=== PATIENT | female | born 1960 | race Caucasian/White ===

== ENCOUNTER 2018-10-24 11:40 | Emergency (ER) | payer BC ==
--- OUTSIDE RECORDS SUMMARY | 2018-10-24 11:47 | XMS REPORT | Continuity of Care Document ---
:1960 External Reference #:[id number] Author Name Jasmina Marcus RN MS SERVICES COORDINATOR Address [address] [place] [address] Care Team Providers Name Role Phone Jasmina Marcus RN MS SERVICES COORDINATOR Care Team Information Environmental Services Assistant Unavailable Payers Date Identification Numbers Payment Provider Subscriber Policy Number: [id number] [facility] Melissa Dietrich PayID: [id number] [address] [place] [address] Advance Directives Description No Information Available Problems Date Description Provider Status Onset: 11/18/2006 Allergic rhinitis due to pollen Active Onset: 11/18/2006 Benign essential hypertension Active Family History Date Family Member(s) Observation Comments Father CAD Father Diabetes, Adult Father Carotid Artery Disease Mother Hypercholesterolemia not tolerant of meds Mother Hypertension Mother Diabetes, Adult diet controlled Mother bifemerol bipass Social History Type Date Description Comments Sex Unknown Marital Status Lives With Son And Parents And Sister Occupation Circuit Design Engineer Occupation Currently Working AT [employer] Tobacco Use Start: Unknown Never Smoked Cigarettes ETOH Use Occasionally consumes alcohol Tobacco Use Start: Unknown Patient has never smoked Smoking Status Reviewed: 10/07/18 Patient has never smoked Allergies, Adverse Reactions, Alerts Description No Known Drug Allergies Medications Medication Date Status Form Strength Qnty SIG Indications Ordering Provider Clotrimazole/Be Active Cream 1-0.05% 30gm apply L30.9 Angeline tamethasone 019 twice a Jasmina C, Dipropionate day as RN MS SERVICES COORDINATOR needed to rash till gone Cephalexin Active Capsules 500mg 21caps 1 tab L03.032 Angeline, 019 three Jasmina C, times a RN MS SERVICES COORDINATOR day for 7 days Zyrtec Allergy Active Capsules 10mg one tab T78.40xA Angeline, 017 daily Jasmina Tai RN MS SERVICES COORDINATOR J30.1 Lisinopril-Hydrochlorothiazide 02/01/2014 Active Tablets 20-12.5mg 90tabs take 1 I10 Angeline, tablet Jasmina by mouth Abida, RN MS once SERVICES COORDINATOR daily in the morning Aleve 11/17/2012 Active Capsules 220mg 30caps one tab 719. Angeline, bid as 69 Jasmina needed Abida RN MS for pain SERVICES COORDINATOR or headache . Dymista 05/06/2017 Hx Suspensi 137-50mcg/ 69gm 1 spray J30. Macadam, - on Act each 1 Joselyn 10/07/2018 pradeep Rizvi MD twice a day Zostavax 02/22/2015 Hx Solution 09139Tbh/[id number] 1units one time V04. Angeline, - Rec .65ML intramus 89 Jasmina 09/19/2015 taylor Tai RN MS injectio SERVICES COORDINATOR n Metformin HCL ER 08/03/2013 Hx Tablets 750mg 90tabs take one R73. Angeline, - ER 24HR tablets 01 10/07/2018 by mouth Abida, RN MS once SERVICES COORDINATOR daily with food Metformin HCL 05/24/2012 Hx Tablets 500mg 180tabs Take One Angeline, - Tablet Jasmina 08/03/2013 By Mouth Abida, RN MS Twice SERVICES COORDINATOR Daily With Meals Loratadine 05/19/2012 Hx Tablets 10mg 30tabs 1 po qd 995. Angeline, - 3 Jasmina 11/27/2016 Abida RN MS SERVICES COORDINATOR Nasonex 12/13/2009 Hx Suspensi 50mcg/Act Samples 2 sprays 995. Angeline, - on each 3 Jasmina 08/14/2010 nostril Abida RN MS daily SERVICES COORDINATOR Ventolin HFA 06/27/2009 Hx Aerosol 108(90Base 1units use tid 466. Angeline, - ) mcg/ac as 0 Jasmina 11/17/2012 needed C RN MS SERVICES COORDINATOR Robitussin ac 06/27/2009 Hx 100cc 1-2 tsp 466. Angeline, - qid prn 0 Jasmina 07/07/2009 cough C, RN MS SERVICES COORDINATOR Azithromycin 06/27/2009 Hx Tablets 250mg 6tabs 2 tabs 466. Angeline, - day one 0 Jasmina 07/07/2009 and 1 C, RN MS tab SERVICES COORDINATOR daily till gone Singulair 05/31/2009 Hx Tablets 10mg samples 1 po qd 786. Angeline, - prn 2 Jasmina 08/14/2010 C, RN MS SERVICES COORDINATOR Fluticasone Propionate 03/28/2009 Hx Suspensi 50mcg/Act 1units one 477. Angeline, - on spray 0 Jasmina 08/14/2010 per each Abida, RN MS nostril SERVICES COORDINATOR qd Nasonex 03/27/2009 Hx Suspensi 50mcg/Act 1units 2 sprays 477. Angeline, - on each 0 Jasmina 03/28/2009 nostril Abida, RN MS daily SERVICES COORDINATOR Flagyl 07/05/2008 Hx Tablets 500mg 14tabs 1 Bidx7 Angeline, - Days Jasmina 07/15/2008 Abida, RN MS SERVICES COORDINATOR Meloxicam 06/29/2008 Hx Tablets 7.5mg 30tabs take 1 719. Angeline, - tablet 89 Jasmina 08/14/2010 by mouth Abida, RN MS every SERVICES COORDINATOR day for pain Lisinopril/Hydrochlorothiazide 06/19/2008 Hx Tablets 20-12.5mg 90tabs Take One 401. Angeline, - Tablet 1 Jasmina 02/01/2014 By Mouth Abida, RN MS Every SERVICES COORDINATOR Day In The Morning Nasonex 11/18/2006 Hx Suspensi 50mcg/Act samples 2 sprays 477. Angeline, - on each 0 Jasmina 08/25/2007 nostril Abida, RN MS daily SERVICES COORDINATOR Flagyl 12/09/2005 Hx Tablets 500mg 14tabs 1 PO Trabout, - Bid-- No Tomas 12/16/2005 MD Jose During Medicati on Augmentin 11/12/2005 Hx Tablets 875mg 20tabs One Tab 682. Angeline, - bid Till 2 Jasmina 11/22/2005 Gone Abida RN MS SERVICES COORDINATOR Darvocet N 100 11/12/2005 Hx Tablets 100mg;650 40tabs 1-2po q 682. Angeline, - mg 4 h prn 2 Jasmina 08/25/2007 pain Abida RN MS SERVICES COORDINATOR Hyzaar 10/08/2005 Hx Tablets 50mg;12.5 30tabs 1 po qd Angeline, - mg Jasmina 06/19/2008 Abida RN MS SERVICES COORDINATOR Clarinex 08/13/2004 Hx Tablets 5mg 30tabs qd as Angeline, - directed Jasmina 08/25/2007 Abida RN MS SERVICES COORDINATOR prior authoriz ation # [id number] 317 Cozaar 08/13/2004 Hx Tablets 50mg 30tabs i po qd Angeline, - Jasmina 10/08/2005 Abida RN MS SERVICES COORDINATOR Medications Administered in Office Medication Date Status Form Strength Qnty SIG Indications Ordering Provider B-12 Injection Administered Injection Unknown 016 Immunizations CPT Code Status Date Vaccine Lot # [id number] Given 04/17/2018 Flu Vaccine NOS 20167 Given 04/26/2017 Afluria Or Fluvirin Flu Vac Intramuscular 47840 Given 04/13/2016 Influenza Vac, Quadrivalent, Split, 0.5mL Dosage, Im Use [id number] Given 06/22/2013 Fluzone Trivalent Immunization [id number] Q2038 Given 05/19/2012 Fluzone Trivalent Immunization [id number] 17054 Given 05/19/2012 Tdap (Adacel) Ages 7 And Above Only [id number] Q2038 Given 05/05/2011 Fluzone Trivalent Immunization [id number] 31365 Given 05/06/2010 Afluria Or Fluvirin Flu Vac Intramuscular [id number] 05580 Given 07/10/2009 Influenza Virus Vaccine Pandemic Formulation - [id number] 66248 Given 07/10/2009 Administration Swine Flu Vaccine [id number] 53461 Given 04/30/2009 Afluria Or Fluvirin Flu Vac Intramuscular [id number] 79298 Given 06/02/2008 Afluria Or Fluvirin Flu Vac Intramuscular [id number] 35160 Given 06/03/2007 Afluria Or Fluvirin Flu Vac Intramuscular 14948 Given 06/03/2007 Afluria Or Fluvirin Flu Vac Intramuscular [id number] 08366 Given 06/04/2006 Afluria Or Fluvirin Flu Vac Intramuscular 35735 Given 06/04/2006 Afluria Or Fluvirin Flu Vac Intramuscular [id number] 69043 Given 04/30/2005 Afluria Or Fluvirin Flu Vac Intramuscular [id number] 35511 Given 05/08/2004 Afluria Or Fluvirin Flu Vac Intramuscular 88845 Given 05/24/2003 Afluria Or Fluvirin Flu Vac Intramuscular 04222 Given 05/04/2002 Afluria Or Fluvirin Flu Vac Intramuscular 76029 Given 06/15/2000 Influenza Virus Vaccine, Whole Virus, Intramuscular Or Jet Inj. Vital Signs Date Vital Result Comment 10/07/2018 8:06am Weight 224.00 lb Heart Rate 92 /min BP Systolic 136 mmHg BP Diastolic 60 mmHg Height 66 inches 5'6" BMI (Body Mass Index) 36.2 kg/m2 05/06/2017 7:51am Body Temperature 97.8 F Weight 225.00 lb Heart Rate 88 /min BP Systolic 130 mmHg BP Diastolic 66 mmHg Height 66 inches 5'6" BMI (Body Mass Index) 36.3 kg/m2 11/27/2016 1:32pm Weight 227.50 lb Heart Rate 82 /min BP Systolic 118 mmHg BP Diastolic 62 mmHg Height 66 inches 5'6" BMI (Body Mass Index) 36.7 kg/m2 09/19/2015 1:43pm Weight 229.25 lb Heart Rate 84 /min BP Systolic 118 mmHg BP Diastolic 69 mmHg Height 66 inches 5'6" BMI (Body Mass Index) 37.0 kg/m2 02/22/2015 10:08am Weight 222.38 lb Heart Rate 83 /min BP Systolic 127 mmHg BP Diastolic 77 mmHg Height 66 inches 5'6" BMI (Body Mass Index) 35.9 kg/m2 02/01/2014 8:14am Weight 225.50 lb Heart Rate 80 /min BP Systolic 119 mmHg BP Diastolic 71 mmHg 08/03/2013 8:08am Weight 225.00 lb Heart Rate 80 /min BP Systolic 118 mmHg BP Diastolic 70 mmHg 11/17/2012 8:15am Weight 221.00 lb Heart Rate 76 /min BP Systolic 116 mmHg BP Diastolic 67 mmHg Height 65.5 inches 5'5.50" BMI (Body Mass Index) 36.2 kg/m2 05/19/2012 1:25pm Weight 214.00 lb Heart Rate 90 /min BP Systolic 142 mmHg BP Diastolic 75 mmHg 08/14/2010 8:24am Weight 207.00 lb Heart Rate 72 /min BP Systolic 110 mmHg BP Diastolic 70 mmHg Height 66.5 inches 5'6.50" With Shoes BMI (Body Mass Index) 32.9 kg/m2 06/27/2009 2:28pm Body Temperature 97.6 F Heart Rate 95 /min BP Systolic 131 mmHg BP Diastolic 76 mmHg Respiratory Rate 20 /min 05/31/2009 8:04am Weight 229.00 lb Heart Rate 90 /min BP Systolic 129 mmHg BP Diastolic 74 mmHg 03/27/2009 11:34am Body Temperature 97.1 F Weight 230.00 lb Heart Rate 73 /min BP Systolic 117 mmHg BP Diastolic 70 mmHg 06/29/2008 8:35am Weight 233.00 lb Heart Rate 76 /min BP Systolic 122 mmHg BP Diastolic 73 mmHg Respiratory Rate 20 /min Height 65.75 inches 5'5.75" BMI (Body Mass Index) 37.9 kg/m2 08/25/2007 11:46am Weight 225.00 lb Heart Rate 75 /min BP Systolic 132 mmHg BP Diastolic 73 mmHg 11/18/2006 11:17am Body Temperature 98.3 F Weight 231.00 lb Heart Rate 80 /min BP Systolic 146 mmHg BP Diastolic 84 mmHg 11/26/2005 9:41am Body Temperature 97.7 F Weight 218.00 lb Heart Rate 80 /min BP Systolic 132 mmHg BP Diastolic 80 mmHg 11/12/2005 10:31am Body Temperature 97.6 F Weight 220.00 lb Heart Rate 90 /min BP Systolic 124 mmHg BP Diastolic 80 mmHg 10/08/2005 9:33am Weight 218.00 lb Heart Rate 86 /min BP Systolic 150 mmHg BP Diastolic 86 mmHg 02/21/2005 11:31am Weight 213.00 lb Heart Rate 80 /min BP Systolic 112 mmHg BP Diastolic 70 mmHg 08/13/2004 10:32am Weight 215.00 lb Heart Rate 73 /min BP Systolic 129 mmHg BP Diastolic 80 mmHg Results Test Date Facility Test Result H/L Range Note Lipid 11/19/2016 [facility] Cholesterol 199 mg/dL 50-199 Triglycerides 134 mg/dL 30-200 HDL 56 mg/dL 35-85 1 Chol/ HDL Ratio 3.5 ratio Low 3.7-5.6 VLDL 27 mg/dL 2-29 LDL (Calc) 116 mg/dL High 20-99 2 Hemoglobin A1c 11/19/2016 [facility] Hemoglobin A1c 6.4 % High 4.1-5.9 Estimated Average Glucose Calc 137 71-140 Comprehensive Metabolic (CMP) 11/19/2016 [facility] Sodium 135 mmol/L 135- 146 3 Potassium 5.4 No visible h <SEE NOTE> mmol/L High 3.5-5.2 4 Chloride# 100 mmol/L 97-110 5 Carbon Dioxide 29 mmol/L 24-34 Glucose 120 mg/dL High 70-105 BUN 24 mg/dL 6-26 Creatinine 1.2 mg/dL 0.5-1.4 Calcium 9.7 mg/dL 8.5-10.2 Total Protein 6.7 g/dL 6.0-8.0 Albumin 4.4 g/dL 3.6-4.9 Globulin 2.3 g/dL 2.0-3.5 A/G Ratio 1.9 Ratio 1.0-2.2 Total Bilirubin 0.7 mg/dL 0.1-1.3 Alkaline Phosphatase 63 U/L 24-140 Alt 14 U/L 3-42 Ast 14 U/L 8-42 Kaylynn Egfr 58 Low >60 6 Non Kaylynn Egfr 48 Low >60 7 Anion Gap 11 mmol/L 7-16 8 Laboratory test finding 09/19/2015 [facility] Pap SEE NOTE 9 Laboratory test finding 09/12/2015 [facility] Hemoglobin A1c 6.3 % High 4.1- 5.9 Comprehensive Metabolic 09/12/2015 [facility] Sodium 136 mmol/L 134-142 (CMP) Potassium 5.6 No visible h <SEE NOTE> mmol/L High 3.5-5.2 10 Chloride 103 mmol/L 97-109 Carbon Dioxide 26 mmol/L 24-34 Glucose 112 mg/dL High 70-105 BUN 22 mg/dL 6-26 Creatinine 1.0 mg/dL 0.5-1.4 Calcium 9.5 mg/dL 8.5-10.2 Total Protein 6.4 g/dL 6.0-8.0 Albumin 4.2 g/dL 3.6-4.9 Globulin 2.2 g/dL 2.0-3.5 A/G Ratio 1.9 Ratio 1.0-2.2 Total Bilirubin 0.9 mg/dL 0.1-1.3 Alkaline Phosphatase 55 U/L 24-140 Alt 16 U/L 3-42 Ast 13 U/L 8-42 Anion Gap 13 mmol/L 6-14 Kaylynn Egfr >60 >60 11 Non Kaylynn Egfr 58 Low >60 12 Lipid 09/12/2015 [facility] Cholesterol 183 mg/dL 50-199 Triglycerides 117 mg/dL 30-200 HDL 52 mg/dL 35-85 13 Chol/ HDL Ratio 3.5 ratio Low 3.7-5.6 VLDL 23 mg/dL 2-29 LDL (Calc) 108 mg/dL High 20-99 14 Laboratory test finding 02/26/2015 [facility] Hemoglobin A1c 6.3 % High 4.1- 5.9 15 Comprehensive Metabolic 02/26/2015 [facility] Sodium 134 mmol/L 134-142 (CMP) Potassium 5.1 mmol/L 3.5-5.2 Chloride 101 mmol/L 97-109 Carbon Dioxide 25 mmol/L 24-34 Glucose 109 mg/dL High 70-105 BUN 18 mg/dL 6-26 Creatinine 1.0 mg/dL 0.5-1.4 Calcium 9.4 mg/dL 8.5-10.2 Total Protein 6.9 g/dL 6.0-8.0 Albumin 4.4 g/dL 3.6-4.9 Globulin 2.5 g/dL 2.0-3.5 A/G Ratio 1.8 Ratio 1.0-2.2 Total Bilirubin 0.7 mg/dL 0.1-1.3 Alkaline Phosphatase 62 U/L 24-140 Alt 15 U/L 3-42 Ast 14 U/L 8-42 Anion Gap 13 mmol/L 6-14 Kaylynn Egfr >60 >60 16 Non Kaylynn Egfr 57 Low >60 17 Laboratory test finding 02/26/2015 [facility] TSH 2.97 uIU/mL 0.35-4.94 CBC With Auto Diff 01/25/2014 [facility] WBC 5.9 K/uL 4.1-11.0 RBC 4.74 M/uL 4.00-5.40 Hemoglobin 13.7 gm/dL 12.0-16.0 Hematocrit 41.0 % 36.0-47.0 MCV 86.4 fL 80.0-97.0 MCH 28.9 pg 27.0-32.0 MCHC 33.4 g/dL 32.0-36.0 RDW 14.1 % 11.5-14.5 PLT Count 321 K/ul 140-400 Neutrophil 65.2 % 35.0-75.0 Lymphocyte 24.9 % 16.0-52.0 Monocyte 6.5 % 2.0-10.0 Eosinophil 2.4 % 0.0-5.0 Basophil 1.0 % 0.0-4.0 Abs Neutrophils 3.8 K/uL 2.1-8.0 Abs Lymphocytes 1.5 K/uL 0.8-5.5 Abmon 0.4 K/uL 0.1-1.0 Abs Eosinophils 0.1 K/uL 0.0-0.5 Abs Basophils 0.1 K/uL 0.0-0.3 Laboratory test finding 01/25/2014 [facility] Hemoglobin A1c 6.6 % High 4.1- 5.9 Lipid 01/25/2014 [facility] Cholesterol 198 mg/dL 50-199 Triglycerides 129 mg/dL 30-200 HDL 58 mg/dL 35-85 18 Chol/ HDL Ratio 3.4 ratio Low 3.7-5.6 VLDL 26 mg/dL 2-29 LDL (Calc) 114 mg/dL High 20-99 19 Comprehensive Metabolic (CMP) 01/25/2014 [facility] Sodium 134 mmol/L 134- 142 Potassium 4.9 mmol/L 3.5-5.2 Chloride 103 mmol/L 97-109 Carbon Dioxide 21 Extremely holly <SEE NOTE> mmol/L Low 24-34 20 Glucose 98 mg/dL 70-105 BUN 21 mg/dL 6-26 Creatinine 1.1 mg/dL 0.5-1.4 Calcium 9.4 mg/dL 8.5-10.2 Total Protein 6.7 g/dL 6.0-8.0 Albumin 4.2 g/dL 3.6-4.9 Globulin 2.5 g/dL 2.0-3.5 A/G Ratio 1.7 Ratio 1.0-2.2 Total Bilirubin 0.7 mg/dL 0.1-1.3 Alkaline Phosphatase 57 U/L 24-140 Alt 14 U/L 3-42 Ast 14 U/L 8-42 Anion Gap 15 mmol/L High 6-14 Kaylynn Egfr >60 >60 21 Non Kaylynn Egfr 54 Low >60 22 Laboratory test finding 07/28/2013 [facility] TSH 3.30 uIU/mL 0.34-5.60 23 Comprehensive Metabolic (CMP) 07/28/2013 [facility] Sodium 137 mmol/L 134- 142 Potassium 5.3 No visible h <SEE NOTE> mmol/L High 3.5-5.2 24 Chloride 103 mmol/L 97-109 Carbon Dioxide 26 mmol/L 24-34 Glucose 121 mg/dL High 70-105 BUN 18 mg/dL 6-26 Creatinine 1.2 mg/dL 0.5-1.4 Calcium 9.6 mg/dL 8.5-10.2 Total Protein 6.4 g/dL 6.0-8.0 Albumin 4.4 g/dL 3.6-4.9 Globulin 2.0 g/dL 2.0-3.5 A/G Ratio 2.2 Ratio 1.0-2.2 Total Bilirubin 0.5 mg/dL 0.1-1.3 Alkaline Phosphatase 59 U/L 24-140 Alt 15 U/L 3-42 Ast 13 U/L 8-42 Anion Gap 13 mmol/L 6-14 Kaylynn Egfr 58 Low >60 25 Non Kaylnyn Egfr 48 Low >60 26 Laboratory test finding 07/28/2013 [facility] Hemoglobin A1c 6.3 % High 4.1- 5.9 CBC With Auto Diff 07/28/2013 [facility] WBC 6.8 K/uL 4.1-11.0 RBC 4.31 M/uL 4.00-5.40 Hemoglobin 13.3 gm/dL 12.0-16.0 Hematocrit 38.3 % 36.0-47.0 MCV 88.9 fL 80.0-97.0 MCH 30.7 pg 27.0-32.0 MCHC 34.6 g/dL 32.0-36.0 RDW 12.9 % 11.5-14.5 PLT Count 314 K/ul 140-400 Neutrophil 74.1 % 35.0-75.0 Lymphocyte 16.5 % 16.0-52.0 Monocyte 6.3 % 2.0-10.0 Eosinophil 2.5 % 0.0-5.0 Basophil 0.6 % 0.0-4.0 Abs Neutrophils 5.0 K/uL 2.1-8.0 Abs Lymphocytes 1.1 K/uL 0.8-5.5 Abmon 0.4 K/uL 0.1-1.0 Abs Eosinophils 0.2 K/uL 0.0-0.5 Abs Basophils 0.0 K/uL 0.0-0.3 Laboratory test 11/17/2012 [facility] Pap SEE NOTE 27 finding GC/Chlamydia By Dna 11/17/2012 [facility] Chlamydia by Dna NEGATIVE Negative Probe Probe GC by Dna Probe NEGATIVE Negative Comprehensive Metabolic (CMP) 09/06/2012 [facility] Sodium 135 mmol/L 134- 142 28 Potassium 5.5 No visible h <SEE NOTE> mmol/L High 3.5-5.2 29 Chloride 102 mmol/L 97-109 Carbon Dioxide 29 mmol/L 24-34 Glucose 98 mg/dL 70-105 BUN 25 mg/dL 6-26 Creatinine 1.1 mg/dL 0.5-1.4 Calcium 9.4 mg/dL 8.5-10.2 Total Protein 6.6 g/dL 6.0-8.0 Albumin 4.3 g/dL 3.6-4.9 Globulin 2.3 g/dL 2.0-3.5 A/G Ratio 1.9 Ratio 1.0-2.2 Total Bilirubin 0.7 mg/dL 0.1-1.3 Alkaline Phosphatase 59 U/L 24-140 Alt 13 U/L 3-42 Ast 12 U/L 8-42 Anion Gap 10 mmol/L 6-14 Kaylynn Egfr >60 >60 30 Non Kaylynn Egfr 54 Low >60 31 CBC With Auto Diff 09/06/2012 [facility] WBC 6.6 K/uL 4.1-11.0 RBC 4.36 M/uL 4.00-5.40 Hemoglobin 13.3 gm/dL 12.0-16.0 Hematocrit 40.7 % 36.0-47.0 MCV 93.1 fL 80.0-97.0 MCH 30.6 pg 27.0-32.0 MCHC 32.8 g/dL 32.0-36.0 RDW 13.0 % 11.5-14.5 PLT Count 305 K/ul 140-400 Neutrophil 68.4 % 35.0-75.0 Lymphocyte 20.7 % 16.0-52.0 Monocyte 6.9 % 2.0-10.0 Eosinophil 3.1 % 0.0-5.0 Basophil 0.9 % 0.0-4.0 Abs Neutrophils 4.5 K/uL 2.1-8.0 Abs Lymphocytes 1.4 K/uL 0.8-5.5 Abs Monocytes 0.5 K/uL 0.1-1.0 Abs Eosinophils 0.2 K/uL 0.0-0.5 Abs Basophils 0.1 K/uL 0.0-0.3 Lipid 09/06/2012 [facility] Cholesterol 193 mg/dL 50-199 Triglycerides 100 mg/dL 30-200 HDL 61 mg/dL 35-85 32 Chol/ HDL Ratio 3.2 ratio Low 3.7-5.6 VLDL 20 mg/dL 2-29 LDL (Calc) 112 mg/dL 20-129 33 Non HDL Cholesterol 132 mg/dL High 20-129 34 Laboratory test finding 09/06/2012 [facility] Hemoglobin A1c 6.1 % High 4.1- 5.9 TSH 2.33 uIU/mL 0.34-5.60 Comprehensive Metabolic (CMP) 05/19/2012 [facility] Sodium 138 mmol/L 134- 142 35 Potassium 5.1 mmol/L 3.5-5.2 Chloride 100 mmol/L 97-109 Carbon Dioxide 28 mmol/L 24-34 Glucose 99 mg/dL 70-105 BUN 20 mg/dL 6-26 Creatinine 1.1 mg/dL 0.5-1.4 Calcium 9.9 mg/dL 8.5-10.2 Total Protein 7.1 g/dL 6.0-8.0 Albumin 4.7 g/dL 3.6-4.9 Globulin 2.4 g/dL 2.0-3.5 A/G Ratio 2.0 Ratio 1.0-2.2 Total Bilirubin 0.7 mg/dL 0.1-1.3 Alkaline Phosphatase 59 U/L 24-140 Alt 14 U/L 3-42 Ast 14 U/L 8-42 Anion Gap 15 mmol/L High 6-14 Kaylynn Egfr >60 >60 36 Non Kaylynn Egfr 54 Low >60 37 [facility] 1[facility] uIU/mL 0.34-5.60 Lipid 05/19/2012 [facility] Cholesterol 218 mg/dL High 50-199 Triglycerides 89 mg/dL 30-200 HDL 60 mg/dL 35-85 38 Chol/ HDL Ratio 3.6 ratio Low 3.7-5.6 VLDL 18 mg/dL 2-29 LDL (Calc) 140 mg/dL High 20-129 39 [facility] test [facility]/19[facility]2012 [facility] 6.4 % High 4.1-5.9 finding Laboratory test 08/14/2010 [facility] (Do not Use) TSH 1.54 0.34-5.60 40 finding [facility] uIU/ml [place], [place] [id number] [phone] CMP 08/14/2010 [facility] (Do not Use) Sodium 141 135-144 [facility] mmol/[place] [address] [phone] Potassium 4.5 mmol/L 3.6-5.2 Chloride 105 mmol/L 97-110 Carbon Dioxide 26 mmol/L 23-32 Glucose 93 mg/dL 70-105 BUN 16 mg/dL 6-22 Creatinine 1.1 mg/dL 0.5-1.3 BUN/CR 15 Ratio Calcium 9.7 mg/dL 8.6-10.2 Total Protein 6.8 g/dL 5.8-7.8 Albumin 4.2 g/dL 3.5-4.8 Globulin 2.6 g/dL 2.0-3.5 A/G Ratio 1.6 Ratio 1.0-2.2 Total Bilirubin 1.2 mg/dL 0.3-1.2 Alkaline Phosphatase 56 U/L 24-140 Alt 17 U/L 5-45 Ast 17 U/L 12-40 Anion Gap 15 mmol/L 8-16 GFR Calculation 56 mL/min Low 60-175 41 GFR For > 60 mL/min 60-175 42 CBC With Auto Diff 08/14/2010 [facility] (Do not Use) WBC 6.4 K/ul 4.0- 10.9 [facility] [place] [address] [phone] RBC 4.56 M/ul 4.20-5.40 Hemoglobin 13.9 GM/dl 12.5-16.0 Hematocrit 40.6 % 36.0-47.0 MCV 89.0 FL 80.0-97.0 MCH 30.5 pg 27.0-31.0 MCHC 34.3 g/dL 32.0-36.0 RDW 14.8 % High 11.5-14.5 Platelet Count 334 K/ul 140-440 Neutrophils 73.0 % High 50-70 Lymphocytes 20.1 % 20-44 Monocytes 4.7 % 2-9 Eosinophil 1.8 % 0-4 Basophil 0.4 % 0-2 Absolute Neutrophils 4.7 K/ul 2.05-7.63 Absolute Lymphocytes 1.3 K/ul 0.8-4.8 Absolute Monocytes 0.3 K/ul 0.1-1.0 Absolute Eosinophils 0.1 K/ul 0.1-0.5 Absolute Basophils 0.0 K/ul 0.0-0.3 Hematology Comment (Comm2) N/A Lipid Panel 08/14/2010 [facility] (Do not Use) Cholesterol 199 mg/dL 50 -199 [facility] [place], [place] [id number] [phone] Triglycerides 79 mg/dL 10-150 HDL 72 mg/dL 35-85 43 Chol/HDL Ratio 2.8 Ratio Low 3.7-5.6 44 VLDL 16 mg/dL 2-29 LDL (Calc) 111 mg/dL 20-129 45 Laboratory test 08/14/2010 [facility] (Do not Use) [facility] Pap - (SEE NOTE) 46, 47 finding [facility] [place] [address] [phone] CBC With Auto 06/15/2009 [facility] (Do not Use) WBC 5.9 K/ul 4.0-1 48 Diff [facility] [address] [place] [address] [phone] RBC 4.30 M/ul 4.20-5.40 Hemoglobin 13.1 GM/dl 12.5-16.0 Hematocrit 39.2 % 36.0-47.0 MCV 91.0 FL 80.0-97.0 MCH 30.4 pg 27.0-31.0 MCHC 33.4 g/dL 32.0-36.0 RDW 12.8 % 11.5-14.5 Platelet Count 374 K/ul 140-440 Neutrophils 64.7 % 50-70 Lymphocytes 26.8 % 20-44 Monocytes 6.1 % 2-9 Eosinophil 2.0 % 0-4 Basophil 0.4 % 0-2 Absolute Neutrophils 3.8 K/ul 2.05-7.63 Absolute Lymphocytes 1.6 K/ul 0.8-4.8 Absolute Monocytes 0.4 K/ul 0.1-1.0 Absolute Eosinophils 0.1 K/ul 0.1-0.5 Absolute Basophils 0.0 K/ul 0.0-0.3 Hematology Comment (Comm2) N/A Laboratory test 06/15/2009 [facility] (Do not Use) Vitamin D, 25 26 ng/mL Low 31-100 finding [facility] [place] [address] [phone] CMP 06/15/2009 [facility] (Do not Use) Sodium 135 mmol/L 135-144 [facility] [place] [address] [phone] Potassium 4.6 mmol/L 3.6-5.2 Chloride 103 mmol/L 97-110 Carbon Dioxide 23 mmol/L 23-32 Glucose 110 mg/dL High 70-105 BUN 13 mg/dL 6-22 Creatinine 1.0 mg/dL 0.5-1.3 BUN/CR 13 Ratio 12.0-20.0 Calcium 9.6 mg/dL 8.6-10.2 Total Protein 6.3 g/dL 5.8-7.8 Albumin 4.1 g/dL 3.5-4.8 Globulin 2.2 g/dL 2.0-3.5 A/G Ratio 1.9 Ratio 1.0-2.2 Total Bilirubin 0.9 mg/dL 0.3-1.2 Alkaline Phosphatase 58 U/L 24-140 Alt 18 U/L 5-45 Ast 18 U/L 12-40 Anion Gap 14 mmol/L 8-16 GFR Calculation > 60 mL/min 60-175 49 GFR For > 60 mL/min 60-175 50 Laboratory test 06/15/2009 [facility] (Do not Use) Rheumatoid 102.4 High 0.0-20.0 finding [facility] Factor -Quant. IU/mL [place], [place] [id number] [phone] Lipid Panel 06/15/2009 [facility] (Do not Use) Cholesterol 183 mg/dL 50 -199 [facility] [place], [place] [id number] [phone] Triglycerides 89 mg/dL 10-150 HDL 49 mg/dL 35-85 51 Chol/HDL Ratio 3.7 Ratio 3.7-5.6 52 VLDL 18 mg/dL 2-29 LDL (Calc) 116 mg/dL 20-129 53 Laboratory test 06/15/2009 [facility] (Do not Use) TSH 1.58 uIU/ml 0.34 -5.60 finding [facility] [place] [address] [phone] Lipid Panel 06/29/2008 [facility] (Do not Use) Cholesterol 198 mg/dL 50 -199 54 [facility] [place] [address] [phone] Triglycerides 70 mg/dL 10-150 HDL 56 mg/dL 35-85 55 Chol/HDL Ratio 3.5 Ratio 56 VLDL 14 mg/dL LDL (Calc) 128 mg/dL 20-129 57 Basic (BMP) 06/29/2008 [facility] (Do not Use) Sodium 139 mmol/L 135- 144 [facility] [place] [address] [phone] Potassium 5.0 mmol/L 3.6-5.2 Chloride 105 mmol/L 97-110 Carbon Dioxide 26 mmol/L 23-33 Glucose 112 mg/dL High 70-105 BUN 16 mg/dL 6-22 Creatinine 1.1 mg/dL 0.5-1.3 BUN/CR 15 Ratio 12.0-20.0 Anion Gap 13 mmol/L 8-16 Calcium 9.8 mg/dL 8.6-10.2 GFR Calculation 56 mL/min 58 GFR For > 60 mL/min 59 Laboratory test 06/29/2008 [facility] (Do not Use) TSH 1.89 uIU/ml 0.34 -5.60 finding [facility] [place] [address] [phone] CBC With Auto Diff 06/29/2008 [facility] (Do not Use) WBC 6.4 K/ul 4.0- 10.9 [facility] [place] [address] [phone] RBC 4.73 M/ul 4.20-5.40 Hemoglobin 14.4 GM/dl 12.5-16.0 Hematocrit 42.0 % 36.0-47.0 MCV 88.8 FL 80.0-97.0 MCH 30.4 pg 27.0-31.0 MCHC 34.3 g/dL 32.0-36.0 RDW 12.9 % 11.5-14.5 Platelet Count 337 K/ul 140-440 Neutrophils 67.9 % 50-70 Lymphocytes 22.7 % 20-44 Monocytes 5.7 % 2-9 Eosinophil 3.5 % 0-4 Basophil 0.2 % 0-2 Absolute Neutrophils 4.4 K/ul 2.05-7.63 Absolute Lymphocytes 1.5 K/ul 0.8-4.8 Absolute Monocytes 0.4 K/ul 0.1-1.0 Absolute Eosinophils 0.2 K/ul 0.1-0.5 Absolute Basophils 0.0 K/ul 0.0-0.3 Hematology Comment (Comm2) N/A Laboratory test 06/29/2008 [facility] (Do not Use) Vitamin D, 25 29 ng/mL Low 31-100 finding [facility] [facility] [place] [place] [id number] [phone] Rheumatoid Factor -Quant. 105.0 IU/mL High 0.0-20.0 Claire Screen Neg Esr 5 MM/HR 0-20 Laboratory test 06/29/2008 [employer] (Do not Use) Surepath Pap - (SEE NOTE) 60 finding [facility] [place] [address] [phone] Laboratory test 11/26/2005 [facility] (Do not Use) LH - LA 41.6 finding [place] [phone] Prolactin-LA 2207 FSH - LA 28.9 CBC 10/09/2005 [facility] (Do not Use) WBC 6.1 K/ul 4.0-10.9 61 [facility] [place] [address] [phone] RBC 4.54 M/ul 4.20-5.40 Hemoglobin 14.1 GM/dl 12.5-16.0 Hematocrit 41.7 % 36.0-47.0 MCV 91.9 FL 80.0-97.0 MCH 31.0 pg 27.0-31.0 MCHC 33.7 g/dL 32.0-36.0 RDW 11.6 % 11.5-14.5 Platelet Count 331 K/ul 140-440 Neutrophils 66.5 % 50-70 Lymphocytes 24.2 % 20-44 Monocytes 5.0 % 2-9 Eosinophil 3.4 % 0-4 Basophil 0.9 % 0-2 Absolute Neutrophils 4.0 K/ul 2.05-7.63 Absolute Lymphocytes 1.5 K/ul 0.8-4.8 Absolute Monocytes 0.3 K/ul 0.1-1.0 Absolute Eosinophils 0.2 K/ul 0.1-0.5 Absolute Basophils 0.1 K/ul 0.1-0.3 Basic (BMP) 10/09/2005 [facility] (Do not Use) Sodium 138 mmol/L 135- 144 [facility] [place] [place] [address] [phone] Potassium 5.3 mmol/L High 3.6-5.2 Chloride 104 mmol/L 97-110 Carbon Dioxide 29 mmol/L 23-33 Glucose 104 mg/dL 70-105 BUN 18 mg/dL 6-22 Creatinine 1.2 mg/dL 0.5-1.3 BUN/CR 15 Ratio 12.0-20.0 Anion Gap 10 mmol/L 8-16 Calcium 9.5 mg/dL 8.6-10.2 62 GFR White Male 69 GFR White Female 51 GFR Black Male 83 GFR Black Female 62 GFR Guidelines 0 63 Laboratory test 10/09/2005 [facility] (Do not Use) TSH 1.46 uIU/ml 0.50 -6.00 finding [facility] [place] [place] [address] [phone] Lipid Panel 10/09/2005 [facility] (Do not Use) Cholesterol 185 mg/dL 50 -199 [facility] [place] [address] [phone] Triglycerides 87 mg/dL 10-150 HDL 59 mg/dL 35-85 Chol/HDL Ratio 3.1 Ratio VLDL 17 mg/dL LDL (Calc) 109 mg/dL 20-129 CBC 02/29/2004 [facility] (Do not Use) WBC 7.6 K/ul 4.1-10.9 [facility] [place] [address] [phone] RBC 4.47 M/ul 4.20-6.30 Hemoglobin 13.6 GM/dl 12.5-15.0 Hematocrit 40.0 % 37.0-51.0 MCV 89.6 FL 80.0-97.0 MCH 30.5 pg 26.0-32.0 MCHC 34.0 g/dL 31.0-36.0 RDW 12.5 % 11.5-14.5 Platelet Count 301 K/ul 140-440 Neutrophils 76.1 % High 50-70 Lymphocytes 16.8 % Low 20-44 Monocytes 5.7 % 2-9 Eosinophil 0.8 % 0-4 Basophil 0.6 % 0-2 Absolute Neutrophils 5.8 K/ul 2.05-7.63 Absolute Lymphocytes 1.3 K/ul 0.8-4.8 Absolute Monocytes 0.4 K/ul 0.1-1.0 Absolute Eosinophils 0.1 K/ul 0.1-0.5 Absolute Basophils 0.0 K/ul Low 0.1-0.3 Laboratory test 02/29/2004 [facility] (Do not Use) TSH 1.88 uIU/ml 0.50 -6.00 finding [facility] [place] [place] [address] [phone] Basic (BMP) 02/29/2004 [facility] (Do not Use) Sodium 138 mmol/L 135- 145 [facility] [place] [address] [phone] Potassium 4.6 mmol/L 3.4-5.3 Chloride 106 mmol/L 98-111 Carbon Dioxide 25 mmol/L 22-33 Glucose 102 mg/dL 70-105 BUN 14 mg/dL 6-26 Creatinine 1.2 mg/dL 0.5-1.5 BUN/CR 12 Ratio 12.0-20.0 Anion Gap 12 mmol/L 10-20 Calcium 9.0 mg/dL 8.6-10.3 Iron Profile 02/29/2004 [facility] (Do not Use) Iron, Total 88 g/dL 50-170 (Iron,Tibc,%Sat) [place] [address] [phone] Total Iron Binding Capacity 365 g/dL 261-478 % Iron Saturation 24.1 % 13.0-45.0 Laboratory test 02/29/2004 [facility] (Do not Use) Cholesterol 171 mg/dL 50-199 [place] [address] [phone] CBC 01/18/2003 [facility] (Do not Use) WBC 5.4 K/ul 4.1-10.9 [place] [address] [phone] RBC 4.75 M/ul 4.2-6.3 Hemoglobin 14.0 GM/dl 12.0-16.0 Hematocrit 42.8 % 37.0-51.0 MCV 90.0 FL 80-97 MCH 29.4 pg 26.0-32.0 MCHC 32.7 g/dL 31.0-36.0 RDW 12.2 % 11.5-14.5 Platelet Count 379 K/ul 140-440 Neutrophils 65.7 % 50-70 Lymphocytes 22.8 % 20-44 Monocytes 7.0 % 2-9 Eosinophil 3.4 % 0-4 Basophil 1.1 % 0-2 Absolute Neutrophils 3.5 K/ul 2.05-7.63 Absolute Lymphocytes 1.2 K/ul 0.8-4.8 Absolute Monocytes 0.4 K/ul 0.1-1.0 Absolute Eosinophils 0.2 K/ul 0.1-0.5 Absolute Basophils 0.1 K/ul 0.1-0.3 Laboratory test 01/18/2003 [facility] (Do not Use) Hemoglobin A1c 6.0 % 4.1-6.5 finding [facility] [place] [address] [phone] TSH 4.39 uIU/ml 0.50-6.00 Basic (BMP) 01/18/2003 [facility] (Do not Use) Sodium 139 mmol/L 135- 145 [facility] [place] [address] [phone] Potassium 4.5 mmol/L 3.4-5.3 Chloride 106 mmol/L 98-111 Carbon Dioxide 24 mmol/L 22-33 Glucose 109 mg/dL High 70-105 BUN 17 mg/dL 6-26 Creatinine 1.3 mg/dL 0.5-1.5 BUN/CR 13 Ratio 12.0-20.0 Anion Gap 14 mmol/L 10-20 Calcium 9.1 mg/dL 8.6-10.3 CBC 10/22/2001 [facility] (Do not Use) WBC 7.6 K/ul 4.1-10.9 [facility] [place] [address] [phone] RBC 4.71 M/ul 4.2-6.3 Hemoglobin 14.3 GM/dl 12.0-16.0 Hematocrit 41.6 % 37.0-51.0 MCV 88.3 FL 80-97 MCH 30.3 pg 26.0-32.0 MCHC 34.3 g/dL 31.0-36.0 RDW 11.8 % 11.5-14.5 Platelet Count 396 K/ul 140-440 Neutrophils 70.8 % High 50-70 Lymphocytes 21.2 % 20-44 Monocytes 5.7 % 2-9 Eosinophil 1.5 % 0-4 Basophil 0.8 % 0-2 Absolute Neutrophils 5.4 K/ul 2.05-7.63 Absolute Lymphocytes 1.6 K/ul 0.8-4.8 Absolute Monocytes 0.4 K/ul 0.1-1.0 Absolute Eosinophils 0.1 K/ul 0.1-0.5 Absolute Basophils 0.1 K/ul 0.1-0.3 Laboratory test 10/22/2001 [facility] (Do not Use) TSH 1.63 uIU/ml 0.47 -6.90 [place] [address] [phone] Free T4 1.3 ng/ml 0.8-2.0 Hemoglobin A1c 6.0 % 4.1-6.5 Laboratory test 10/22/2001 [facility] (Do not Use) Cholesterol 181 mg/dL 50-199 [place] [address] [phone] HDL Cholesterol 53 mg/dL 29-86 Basic (BMP) 10/22/2001 [facility] (Do not Use) Sodium 139 mmol/L 137- 145 [place] [address] [phone] Potassium 4.5 mmol/L 3.6-5.0 Chloride 103 mmol/L 98-107 Carbon Dioxide 25 mmol/L 22-30 Glucose 136 mg/dL High 65-105 BUN 15 mg/dL 7-18 Creatinine, Serum 1.3 mg/dL High 0.7-1.2 BUN/CR Ratio 11.9 Ratio Low 12-20 Anion Gap 16 mmol/L 10-20 Calcium 9.6 mg/dL 8.7-10.5 1 Per NCEP ATP III Guidelines: Results lower than 40 mg/dL are suggestive of increased risk for coronary artery disease. Results > or=to 60 mg/dL are considered a negative risk factor. 2 Per NCEP ATP III Guidelines: Normal Population <130 Patients with medical conditions: CHD/DM Optimal: <100 Borderline high: 130-159 High: 160-189 Very high: >189 3 Updated reference range on new analyzer 4 5.4 No visible hemolysis. 5 Updated reference range on new analyzer 6 Concerning GFR Guidelines for Americans: Normal function or mild renal disease, if clinically at risk: >/=60 mL/min Moderately decreased: 30-59 Severely decreased: 15-29 Renal failure: <15 7 Concerning GFR Guidelines: Normal function or mild renal disease, if clinically at risk: >/=60 mL/min Moderately decreased: 30-59 Severely decreased: 15-29 Renal failure: <15 Glomerular Filtration Rate (GFR) is estimated based on the MDRD equation, which assumes a steady state for creatinine as recommended by the National Kidney Disease Education Program in conjunction with the National Institutes of Health and the National Kidney Foundation. Clinical conditions in which it may be necessary to measure GFR by using clearance methods include extremes of age and body size, severe malnutrition or obesity, diseases of skeletal muscle, paraplegia or quadriplegia, vegetarian diet, rapidly changing kidney function, and calculation of the dose of potentially toxic drugs that are excreted by the kidneys. 8 Updated reference range on new analyzer 9 LABORATORY [employer] [facility]. [address] [place] [address] GYNECOLOGIC CYTOLOGY REPORT Accession Number: [id number] Source of Specimen(s): A: SurePath Vaginal / Cervical Pap Smear - One Vial Clinical Diagnosis and History: Date of Last Menstrual Period: 10 yrs Other Clinical Conditions: Last Smear Date: One yrs Normal Specimen Adequacy Satisfactory for evaluation Scant/no endocervical component General Categorization Negative for intraepithelial lesion or malignancy Interpretation NEGATIVE FOR INTRAEPITHELIAL LESION OR MALIGNANCY Reported: 09/21/2015 Electronically Signed Out By Daya AMANDA(ASCP) [facility]CKevin javier Unless otherwise specified, testing performed by [facility] [place] [address] [place] [address] 10 5.6 No visible hemolysis. 11 Concerning GFR Guidelines for Americans: Normal function or mild renal disease, if clinically at risk: >/=60 mL/min Moderately decreased: 30-59 Severely decreased: 15-29 Renal failure: <15 12 Concerning GFR Guidelines: Normal function or mild renal disease, if clinically at risk: >/=60 mL/min Moderately decreased: 30-59 Severely decreased: 15-29 Renal failure: <15 Glomerular Filtration Rate (GFR) is estimated based on the MDRD equation, which assumes a steady state for creatinine as recommended by the National Kidney Disease Education Program in conjunction with the National Institutes of Health and the National Kidney Foundation. Clinical conditions in which it may be necessary to measure GFR by using clearance methods include extremes of age and body size, severe malnutrition or obesity, diseases of skeletal muscle, paraplegia or quadriplegia, vegetarian diet, rapidly changing kidney function, and calculation of the dose of potentially toxic drugs that are excreted by the kidneys. 13 Per NCEP ATP III Guidelines: Results lower than 40 mg/dL are suggestive of increased risk for coronary artery disease. Results > or=to 60 mg/dL are considered a negative risk factor. 14 Per NCEP ATP III Guidelines: Normal Population <130 Patients with medical conditions: CHD/DM Optimal: <100 Borderline high: 130-159 High: 160-189 Very high: >189 15 This sample is drawn by:[facility]ANCE. 16 Concerning GFR Guidelines for Americans: Normal function or mild renal disease, if clinically at risk: >/=60 mL/min Moderately decreased: 30-59 Severely decreased: 15-29 Renal failure: <15 17 Concerning GFR Guidelines: Normal function or mild renal disease, if clinically at risk: >/=60 mL/min Moderately decreased: 30-59 Severely decreased: 15-29 Renal failure: <15 Glomerular Filtration Rate (GFR) is estimated based on the MDRD equation, which assumes a steady state for creatinine as recommended by the National Kidney Disease Education Program in conjunction with the National Institutes of Health and the National Kidney Foundation. Clinical conditions in which it may be necessary to measure GFR by using clearance methods include extremes of age and body size, severe malnutrition or obesity, diseases of skeletal muscle, paraplegia or quadriplegia, vegetarian diet, rapidly changing kidney function, and calculation of the dose of potentially toxic drugs that are excreted by the kidneys. 18 Per NCEP ATP III Guidelines: Results lower than 40 mg/dL are suggestive of increased risk for coronary artery disease. Results > or=to 60 mg/dL are considered a negative risk factor. 19 Per NCEP ATP III Guidelines: Normal Population <130 Patients with medical conditions: CHD/DM Optimal: <100 Borderline high: 130-159 High: 160-189 Very high: >189 20 21 Extremely short draw 21 Concerning GFR Guidelines for Americans: Normal function or mild renal disease, if clinically at risk: >/=60 mL/min Moderately decreased: 30-59 Severely decreased: 15-29 Renal failure: <15 22 Concerning GFR Guidelines: Normal function or mild renal disease, if clinically at risk: >/=60 mL/min Moderately decreased: 30-59 Severely decreased: 15-29 Renal failure: <15 Glomerular Filtration Rate (GFR) is estimated based on the MDRD equation, which assumes a steady state for creatinine as recommended by the National Kidney Disease Education Program in conjunction with the National Institutes of Health and the National Kidney Foundation. Clinical conditions in which it may be necessary to measure GFR by using clearance methods include extremes of age and body size, severe malnutrition or obesity, diseases of skeletal muscle, paraplegia or quadriplegia, vegetarian diet, rapidly changing kidney function, and calculation of the dose of potentially toxic drugs that are excreted by the kidneys. 23 This sample is drawn by:MM 24 5.3 No visible hemolysis. Testing performed on an aliquot tube. 25 Concerning GFR Guidelines for Americans: Normal function or mild renal disease, if clinically at risk: >/=60 mL/min Moderately decreased: 30-59 Severely decreased: 15-29 Renal failure: <15 26 Concerning GFR Guidelines: Normal function or mild renal disease, if clinically at risk: >/=60 mL/min Moderately decreased: 30-59 Severely decreased: 15-29 Renal failure: <15 Glomerular Filtration Rate (GFR) is estimated based on the MDRD equation, which assumes a steady state for creatinine as recommended by the National Kidney Disease Education Program in conjunction with the National Institutes of Health and the National Kidney Foundation. Clinical conditions in which it may be necessary to measure GFR by using clearance methods include extremes of age and body size, severe malnutrition or obesity, diseases of skeletal muscle, paraplegia or quadriplegia, vegetarian diet, rapidly changing kidney function, and calculation of the dose of potentially toxic drugs that are excreted by the kidneys. 27 [employer]. Formerly [facility], 1928–[address] [place] [address] GYNECOLOGIC CYTOLOGY REPORT Accession Number: [id number] Source of Specimen(s): A: [facility] Vaginal / Cervical Pap Smear - One Vial Clinical Diagnosis and History: Date of Last Menstrual Period: years Menstrual History: Post-menopausal Other Clinical Conditions: Last Pap Smear: 2011 normal Specimen Adequacy Satisfactory for evaluation Scant/no endocervical component General Categorization Negative for intraepithelial lesion or malignancy Interpretation NEGATIVE FOR INTRAEPITHELIAL LESION OR MALIGNANCY Acute inflammatory cells Reported: 11/22/2012 Electronically Signed Out By Kavya AMANDA(ASCP) [facility] dol Unless otherwise specified, testing performed by [employer] [place] [address] [place] [address] 28 This sample is drawn by:CT 29 5.5 No visible hemolysis. 30 Concerning GFR Guidelines for Americans: Normal function or mild renal disease, if clinically at risk: >/=60 mL/min Moderately decreased: 30-59 Severely decreased: 15-29 Renal failure: <15 31 Concerning GFR Guidelines: Normal function or mild renal disease, if clinically at risk: >/=60 mL/min Moderately decreased: 30-59 Severely decreased: 15-29 Renal failure: <15 Glomerular Filtration Rate (GFR) is estimated based on the MDRD equation, which assumes a steady state for creatinine as recommended by the National Kidney Disease Education Program in conjunction with the National Institutes of Health and the National Kidney Foundation. Clinical conditions in which it may be necessary to measure GFR by using clearance methods include extremes of age and body size, severe malnutrition or obesity, diseases of skeletal muscle, paraplegia or quadriplegia, vegetarian diet, rapidly changing kidney function, and calculation of the dose of potentially toxic drugs that are excreted by the kidneys. 32 Per NCEP ATP III Guidelines: Results lower than 40 mg/dL are suggestive of increased risk for coronary artery disease. Results > or=to 60 mg/dL are considered a negative risk factor. 33 Per NCEP ATP III Guidelines: Optimal: <100 Near optimal: 100-129 Borderline high: 130-159 High: 160-189 Very high: >189 34 Desirable: <130 Borderline High: 130-159 High: 160-189 Very high: 190 or greater 35 This sample is drawn by:EDER 36 Concerning GFR Guidelines for Americans: Normal function or mild renal disease, if clinically at risk: >/=60 mL/min Moderately decreased: 30-59 Severely decreased: 15-29 Renal failure: <15 37 Concerning GFR Guidelines: Normal function or mild renal disease, if clinically at risk: >/=60 mL/min Moderately decreased: 30-59 Severely decreased: 15-29 Renal failure: <15 Glomerular Filtration Rate (GFR) is estimated based on the MDRD equation, which assumes a steady state for creatinine as recommended by the National Kidney Disease Education Program in conjunction with the National Institutes of Health and the National Kidney Foundation. Clinical conditions in which it may be necessary to measure GFR by using clearance methods include extremes of age and body size, severe malnutrition or obesity, diseases of skeletal muscle, paraplegia or quadriplegia, vegetarian diet, rapidly changing kidney function, and calculation of the dose of potentially toxic drugs that are excreted by the kidneys. 38 Per NCEP ATP III Guidelines: Results lower than 40 mg/dL are suggestive of increased risk for coronary artery disease. Results > or=to 60 mg/dL are considered a negative risk factor. 39 Per NCEP ATP III Guidelines: Optimal: <100 Near optimal: 100-129 Borderline high: 130-159 High: 160-189 Very high: >189 40 FASTING This sample is drawn by:EDER 41 Concerning GFR GUIDELINES: Normal Function or Mild Renal Disease, if clinically at risk: >/=60mL/min Moderately decreased: 30-59 Severely decreased: 15-29 Renal Failure: <15 Glomerular Filtration Rate (GFR) is estimated based on the MDRD equation, which assumes a steady state for creatinine as recommended by the National Kidney Disease Education Program in conjunction with the National Institutes of Health and the National Kidney Foundation. Clinical conditions in which it may be necessary to measure GFR by using clearance methods include extremes of age and body size, severe malnutrition or obesity, diseases of skeletal muscle, paraplegia or quadriplegia, vegetarian diet, rapidly changing kidney function, and calculation of the dose of potentially toxic drugs that are excreted by the kidneys. 42 Concerning GFR GUIDELINES: Normal Function or Mild Renal Disease, if clinically at risk: >/=60mL/min Moderately decreased: 30-59 Severely decreased: 15-29 Renal Failure: <15 43 PER NCEP ATP III GUIDELINES: RESULTS LOWER THAN 40 MG/DL ARE SUGGESTIVE OF INCREASED RISK FOR CORONARY ARTERY DISEASE. RESULTS > OR=TO 60 MG/DL ARE CONSIDERED A NEGATIVE RISK FACTOR. 44 INTERPRETATION OF CHOL-HDL RATIO CHD RISK FEMALE MALE VERY HIGH >8.3 >14.3 HIGH 5.6 - 8.3 6.7 - 14.3 AVERAGE 3.7 - 5.6 4.0 - 6.7 BELOW AVERAGE 2.5 - 3.7 2.7 - 4.0 PROTECTED <2.5 <2.7 45 PER NCEP ATP III GUIDELINES: OPTIMAL: <100 NEAR OPTIMAL: 100 - 129 BORDERLINE HIGH: 130 - 159 HIGH: 160 - 189 VERY HIGH: >189 46 This sample is drawn by:EDER 47 [facility]. [address] [place] [address] GYNECOLOGIC CYTOLOGY REPORT Accession Number: [id number] Source of Specimen(s): A: SurePath Endocervical Pap Smear - One Vial Clinical Diagnosis and History: Date of Last Menstrual Period: 2 yrs ago Other Clinical Conditions: Last Pap Smear: 2008 normal Specimen Adequacy Satisfactory for evaluation Presence of endocervical/transformation zone component General Categorization Negative for intraepithelial lesion or malignancy Interpretation NEGATIVE FOR INTRAEPITHELIAL LESION OR MALIGNANCY Acute inflammatory cells Reported: 08/16/2010 Electronically Signed Out By Cleo AMANDA([facility]) [facility] Unless otherwise specified, testing performed by [facility] [place] [facility] [employer] [address] [place] [phone] FASTING This sample is drawn by:CT 49 Concerning GFR GUIDELINES: Normal Function or Mild Renal Disease, if clinically at risk: >/=60mL/min Moderately decreased: 30-59 Severely decreased: 15-29 Renal Failure: <15 Glomerular Filtration Rate (GFR) is estimated based on the MDRD equation, which assumes a steady state for creatinine as recommended by the National Kidney Disease Education Program in conjunction with the National Institutes of Health and the National Kidney Foundation. Clinical conditions in which it may be necessary to measure GFR by using clearance methods include extremes of age and body size, severe malnutrition or obesity, diseases of skeletal muscle, paraplegia or quadriplegia, vegetarian diet, rapidly changing kidney function, and calculation of the dose of potentially toxic drugs that are excreted by the kidneys. 50 Concerning GFR GUIDELINES: Normal Function or Mild Renal Disease, if clinically at risk: >/=60mL/min Moderately decreased: 30-59 Severely decreased: 15-29 Renal Failure: <15 51 PER NCEP ATP III GUIDELINES: RESULTS LOWER THAN 40 MG/DL ARE SUGGESTIVE OF INCREASED RISK FOR CORONARY ARTERY DISEASE. RESULTS > OR=TO 60 MG/DL ARE CONSIDERED A NEGATIVE RISK FACTOR. 52 INTERPRETATION OF CHOL-HDL RATIO CHD RISK FEMALE MALE VERY HIGH >8.3 >14.3 HIGH 5.6 - 8.3 6.7 - 14.3 AVERAGE 3.7 - 5.6 4.0 - 6.7 BELOW AVERAGE 2.5 - 3.7 2.7 - 4.0 PROTECTED <2.5 <2.7 53 PER NCEP ATP III GUIDELINES: OPTIMAL: <100 NEAR OPTIMAL: 100 - 129 BORDERLINE HIGH: 130 - 159 HIGH: 160 - 189 VERY HIGH: >189 54 FASTING This sample is drawn by: DB 55 PER NCEP ATP III GUIDELINES: RESULTS LOWER THAN 40 MG/DL ARE SUGGESTIVE OF INCREASED RISK FOR CORONARY ARTERY DISEASE. RESULTS > OR=TO 60 MG/DL ARE CONSIDERED A NEGATIVE RISK FACTOR. 56 INTERPRETATION OF CHOL-HDL RATIO CHD RISK FEMALE MALE VERY HIGH >8.3 >14.3 HIGH 5.6 - 8.3 6.7 - 14.3 AVERAGE 3.7 - 5.6 4.0 - 6.7 BELOW AVERAGE 2.5 - 3.7 2.7 - 4.0 PROTECTED <2.5 <2.7 57 PER NCEP ATP III GUIDELINES: OPTIMAL: <100 NEAR OPTIMAL: 100 - 129 BORDERLINE HIGH: 130 - 159 HIGH: 160 - 189 VERY HIGH: >189 58 Concerning GFR GUIDELINES: Normal Function or Mild Renal Disease, if clinically at risk: >/=60mL/min Moderately decreased: 30-59 Severely decreased: 15-29 Renal Failure: <15 Glomerular Filtration Rate (GFR) is estimated based on the MDRD equation, which assumes a steady state for creatinine as recommended by the National Kidney Disease Education Program in conjunction with the National Institutes of Health and the National Kidney Foundation. Clinical conditions in which it may be necessary to measure GFR by using clearance methods include extremes of age and body size, severe malnutrition or obesity, diseases of skeletal muscle, paraplegia or quadriplegia, vegetarian diet, rapidly changing kidney function, and calculation of the dose of potentially toxic drugs that are excreted by the kidneys. 59 Concerning GFR GUIDELINES: Normal Function or Mild Renal Disease, if clinically at risk: >/=60mL/min Moderately decreased: 30-59 Severely decreased: 15-29 Renal Failure: <15 60 [employer]. [facility], [facility] [place] [address] GYNECOLOGIC CYTOLOGY REPORT Accession Number: [id number] Source of Specimen(s): A: SurePath Cervical / Endocervical Pap Smear - One Vial Clinical Diagnosis and History: Date of Last Menstrual Period: 03/03 Other Clinical Conditions: Last Pap Smear: 2005 normal REFLEX TO DIGENE HPV ASSAY IF RESULTS OF THIS PAP ARE ASCUS Specimen Adequacy Satisfactory for evaluation Scant/no endocervical component General Categorization Negative for intraepithelial lesion or malignancy Interpretation NEGATIVE FOR INTRAEPITHELIAL LESION OR MALIGNANCY Shift in yary suggestive of bacterial vaginosis Reported: 07/03/2008 Electronically Signed Out By aDya AMANDA(ASCP) [facility], P.CKevin herrera ICD9 Code: V72.31 Unless otherwise specified, testing performed by [email or web address] [address] [place] [address] [phone] FASTING 62 The difference between the most recent result of 9.0 and the current result of 9.5 exceeds the absolute delta value of 0.3 as defined for this test. 63 Normal Function or Mild Renal Disease, if clinically at risk: >/=60 mL/min Moderately decreased: 30-59 Severely decreased: 15-29 Renal Failure: <15 Glomerular Filtration Rate (GFR) is estimated based on the MDRD equation, which assumes a steady state for creatinine as recommended by the National Kidney Disease Education Program in conjunction with the National Institutes of Health and the National Kidney Foundation. Clinical conditions in which it may be necessary to measure GFR by using clearance methods include extremes of age and body size, severe malnutrition or obesity, diseases of skeletal muscle, paraplegia or quadriplegia, vegetarian diet, rapidly changing kidney function, and calculation of the dose of potentially toxic drugs that are excreted by the kidneys. Procedures Date Code Description Status 05/06/2017 87029 Remove Impact Cerumen Irrigation/Lavage Completed 08/29/2013 [id number] Mammogram Completed 01/09/2012 [id number] Mammogram Completed 04/29/2011 [id number] Mammogram Completed 10/23/2010 [id number] Mammogram Completed 09/25/2010 [id number] Mammogram Completed 09/20/2010 [id number] Mammogram Completed 05/06/2010 43333 Admin Of Inj (Therapeutic Phrophylactic Or Diagnostic Completed Subq Inj 07/10/2009 65116 Admin Of Inj (Therapeutic Phrophylactic Or Diagnostic Completed Subq Inj 04/30/2009 45409 Admin Of Inj (Therapeutic Phrophylactic Or Diagnostic Completed Subq Inj 03/03/2003 37416 Doppler Color Flow Velocity Mapping Completed 03/03/2003 12964 Doppler Echocardiography Complete Completed 03/03/2003 17145 ECHO Complete W/O Spectral Or Color Doppler Completed 05/26/2000 84909 Remove Impacted Cerumen Requiring Instrumentation Completed Encounters Type Date Location Provider Dx Diagnosis Office Visit 05/06/2017 7:45a aMrtir Hyatt PA J30.1 Allergic rhinitis due to pollen 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, uni, LEFT ear, w unrestr hear cntra side H61.22 Impacted cerumen, LEFT ear Office Visit 11/27/2016 1:20p Jasmina Roy, Z00.00 Encntr for general RN [employer] SERVICES COORDINATOR adult medical exam w/o abnormal findings R73.01 Impaired fasting glucose R53.83 Other fatigue E88.81 Metabolic syndrome Z12.31 Encntr screen mammogram for malignant neoplasm of breast Office Visit 09/19/2015 1:20p Jasmina Roy, Z01.419 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 (general) (routine) w/o abn findings R73.01 Impaired fasting glucose R53.83 Other fatigue I10 Essential (primary) hypertension Z12.11 Encounter for screening for malignant neoplasm of colon Z12.31 Encntr screen mammogram for malignant neoplasm of breast Office Visit 02/22/2015 10:00a Jasmina Roy, 790.21 Impaired Fasting RN MS SERVICES COORDINATOR Glucose 277.7 Dysmetabolic Syndrome X 240.9 Goiter Unspec V76.10 Screening For Malignant Neoplasm Breast V04.89 Need For Prophylactic Vaccination & Inoculation Other Virus Office Visit 02/01/2014 8:00a Jasmina Roy, 790.21 Impaired Fasting RN MS SERVICES COORDINATOR Glucose 277.7 Dysmetabolic Syndrome X 240.9 Goiter Unspec Office Visit 08/03/2013 8:00a Jasmina Roy, V76.10 Screening For RN MS SERVICES COORDINATOR Malignant Neoplasm Breast 790.21 Impaired Fasting Glucose Office Visit 11/17/2012 8:00a Jasmina Roy, V72.31 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 Examination 401.1 Hypertension Benign 995.3 Allergy Unspec 780.79 Malaise And Fatigue Other 719.69 Joint Symptoms Other Multiple Sites V74.5 Screening Examination Venereal Disease Office Visit 05/19/2012 1:20p Jasmina Roy, RN 401.1 Hypertension Benign MS SERVICES COORDINATOR V17.49 Family HX Of Other Cardiovascular Diseases 995.3 Allergy Unspec V18.19 Family HX Of Other Endocrine And Metabolic Disease V04.81 Need For Prophylactic Vaccination & Inoculation/Influenza 825.30 FX Foot Bones (Except Toes) Open Unspec 917.6 Injury Superficial Foreign Body Foot & Toes W/O Infection V06.1 Hiqeyuwzna-Drvpxgz-Uzupfcyb Combined (DTaP) 380.4 Impacted Cerumen V04.89 Need For Prophylactic Vaccination & Inoculation Other Virus Office Visit 08/14/2010 8:15a Jasmina Roy, V72.31 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 Examination V17.49 Family HX Of Other Cardiovascular Diseases 401.1 Hypertension Benign Office Visit 12/13/2009 8:45a Jasmina Roy, RN 995.3 Allergy Unspec MS SERVICES COORDINATOR Office Visit 06/27/2009 2:00p Jasmina Roy, RN 462 Pharyngitis Acute MS SERVICES COORDINATOR 466.0 Bronchitis Acute Office Visit 05/31/2009 8:00a Jasmina Roy, RN MS SERVICES COORDINATOR 786.2 Cough 995.3 Allergy Unspec Office Visit 03/27/2009 11:15a Jasmina Roy, 477.0 Rhinitis Allergic Due RN MS SERVICES COORDINATOR To Pollen Office Visit 06/29/2008 8:15a Jasmina Ryo, V72.31 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 Examination 401.1 Hypertension Benign V17.49 Family HX Of Other Cardiovascular Diseases 780.79 Malaise And Fatigue Other 719.89 Joint Disorder Other Spec Multiple Sites Office Visit 08/25/2007 10:45a Jasmina Roy, 719.46 Pain Joint Lower Leg RN MS SERVICES COORDINATOR Office Visit 11/18/2006 11:00a Jasmina Roy, 462 Pharyngitis Acute RN MS SERVICES COORDINATOR 477.0 Rhinitis Allergic Due To Pollen Office Visit 11/26/2005 9:30a Jasmina Roy, 626.0 Menstruation Absence RN MS SERVICES COORDINATOR 682.2 Cellulitis & Abscess Trunk 401.1 Hypertension Benign V15.09 Allergy Other Than To Medicinal Agents Office Visit 11/12/2005 10:20a Jasmina Roy, 682.2 Cellulitis & Abscess RN MS SERVICES COORDINATOR Trunk Office Visit 10/08/2005 9:20a Jasmina Roy, 626.0 Menstruation Absence RN MS SERVICES COORDINATOR 401.1 Hypertension Benign Office Visit 08/13/2004 10:20a Jasmina Roy, RN 401.1 Hypertension Benign MS SERVICES COORDINATOR Office Visit 02/28/2004 11:30a Jasmina Roy, RN 401.1 Hypertension Benign MS SERVICES COORDINATOR V70.0 Exam (Adult) General Medical Routine AT Health Care Facility Office Visit 08/11/2003 11:10a Joselyn Gutierrez 461.0 Sinusitis Acute MD mDitri Maxillary Office Visit 02/20/2003 8:00a Jasmina Roy, 401.1 Hypertension Benign RN MS SERVICES COORDINATOR Office Visit 01/16/2003 11:20a Jasmina Roy, 465.9 URI Upper Respiratory RN MS SERVICES COORDINATOR Infections Acute Unspec Sites Office Visit 08/15/2002 8:30a Jasmina Roy, 462 Pharyngitis Acute RN MS SERVICES COORDINATOR 465.9 URI Upper Respiratory Infections Acute Unspec Sites Office Visit 12/30/2001 3:30p Jasmina Roy, 462 Pharyngitis Acute RN MS SERVICES COORDINATOR Office Visit 10/13/2001 3:50p Jasmina Roy, 780.79 Malaise And Fatigue RN MS SERVICES COORDINATOR Other 465.9 URI Upper Respiratory Infections Acute Unspec Sites Office Visit 10/15/2000 2:50p Millie Garg RN A.N.P. Plan of Treatment Future Appointment(s):03/31/2019 8:20 am - Jasmina Marcus RN MS SERVICES COORDINATOR at [id number]/14/2018 8:50 am - Nurses Schedule [place] at [facility]/07/2018 - Jasmina Marcus RN MS FNPR73.01 Impaired fasting glucoseNew Labs:Hemoglobin A1c, Ordered: 10/07/18Basic (BMP), Ordered: 10/07/18Comprehensive Met Panel-FCMG, Ordered: 10/07/18TSH, Ordered: 10/07/18Lipid, Ordered: 10/07/18Follow up:6 MO FOR PAP AND EKG FASTING LABS NEXT [id number] Essential (primary) qahmpatmytnmT99.31 Encounter for screening mammogram for malignant neoplasm ofNew Xrays:Mammogram, Screening, Bilateral, Scheduled: 11/11/18Miscellaneous: REVIEWED SELF BREAST EXAM AND NEED TO DO MONTHLY TO BECOME COMFORTABLE WITH FINDING CHANGES. REMEMBER TO CALL FOR APPOINTMENT FOR YOUR MAMMOGRAM.Z12.11 Encounter for screening for malignant neoplasm of colonMiscellaneous:EXPLAINED COLOGUARD, THIS IS A TYPE OF COLON SCREENING FOR NEOPLASM THAT IS 92 % ACCURATE AND IS USED IN PLACE OF A COLONOSCOPY IN PATIENTS THAT CANNOT/WA REFUSE A COLONOSCOPY.. ALSO THAT A POSITIVE TEST WILL REQUIRE A COLONOSCOPY. YOU MUST CHECK WITH YOUR INSURANCE TO SEE IF COVERED ( CALL THE NUMBER ON YOUR INSURANCE CARD) LET ME KNOW IF COVERED AND I WILL HAVE IT SENT TO YOUR HOME.L30.9 Dermatitis, unspecifiedNew Medication:Clotrimazole/Betamethasone Dipropionate 1- 0.05 % - apply twice a day as needed to rash till goneMiscellaneous:IF NOT BETTER IN ONE MONTH, NEED TO SEE COSFGIRVC72.032 Cellulitis of LEFT toeNew Medication:Cephalexin 500 mg - 1 tab three times a day for 7 daysZ68.36 Body mass index (BMI) 36.0-36.9, adult
--- NOTE | 2018-10-24 11:48 | UC ---
Lower Extremity/Ankle HPI - HPI Summary HPI Summary: 58 -year-old female with cellulitis to her left foot. She states couple of weeks ago she had a small cut from having dry skin in between her fifth and fourth toe and it developed some redness and swelling area she saw her primary care provider and was started on cephalexin and has taken a full course. She stopped that a few days ago but the foot has remained red and tender. No drainage from the opening between the fourth and fifth toes. She states she is prediabetic. - History of Current Complaint Stated Complaint: LEFT FOOT PAIN Time Seen by Provider: 10/24/18 11:41 Hx Obtained From: Patient ?: No Onset/Duration: Gradual Onset Severity Initially: Mild Severity Currently: Moderate Aggravating Factor(s): Ambulation Alleviating Factor(s): Rest, Elevation Able to Bear Weight: Yes - Risk Factors Gout Risk Factors: Age Over 40 DVT Risk Factors: Negative Septic Arthritis Risk Factor: Negative - Allergies/Home Medications Allergies/Adverse Reactions: Allergies Allergy/AdvReac Type Severity Reaction Status Date / Time No Known Allergies Allergy Verified 10/24/18 11:51 Home Medications: Home Medications Cetirizine* [ZyrTEC 10 MG TAB*] 5 mg PO DAILY 10/24/18 [History Confirmed ] Lisinopril/HCTZ 20/25(NF) [Zestoretic 20/25(NF)] 1 tab PO DAILY 10/24/18 [ History Confirmed 10/24/18] Naproxen Sodium [Aleve] 220 mg PO DAILY 10/24/18 [History Confirmed 10/24/18] PMH/Surg Hx/FS Hx/Imm Hx Previously Healthy: Yes Endocrine History: Other - Prediabetic - Surgical History Surgical History: Yes Surgery Procedure, Year, and Place: left acl reconstruction 1999. breast biopsy 2010 benign - Family History Known Family History: Positive: None - Social History Lives: With Family Substance Use Type: None Review of Systems All Other Systems Reviewed And Are Negative: Yes Skin: Positive: Other - Redness over the dorsum of the left foot starting from between the fifth and fourth toes No active drainage however there is a small cut in between those toes approximately 0.5 cm. Tenderness on palpation. Motor: Positive: Negative Neurovascular: Positive: Negative Musculoskeletal: Positive: Negative Psychological: Positive: Negative Is Patient Immunocompromised?: No Physical Exam Triage Information Reviewed: Yes Appearance: Well-Appearing, No Pain Distress, Well-Nourished Vital Signs Reviewed: Yes Musculoskeletal: Positive: Strength Intact, ROM Intact, No Edema, Other: - Redness over the dorsum of the left foot starting from between the fifth and fourth toes No active drainage however there is a small cut in between those toes approximately 0.5 cm. Tenderness on palpation. Neurological Exam: Normal Neurological: Positive: Alert, Muscle Tone Normal Psychological Exam: Normal Skin: Positive: Other - See above notes. Lower Extremity Course/Dx - Course Course Of Treatment: REPORT AND IMPRESSION: #. Soft tissue swelling and subcutaneous emphysema at the fourth interspace corresponding with the clinical history. #. No definitive osseous erosion or periosteal reaction to confirm presence of osteomyelitis. If clinically indicated follow-up MRI or in setting of contraindication to MRI 3 phase bone scan could be obtained to further assess for osteoarthritis. #. 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 #. Os tibialis externum and os peroneum accessory ossicles noted. Patient has been comfortable here. Because of an interaction between Bactrim and the medication she takes I wouldn't start her on doxycycline 100 mg by mouth twice a day for 10 days. I advised her not to eat any dairy products antacids or multivitamins 2 hours before 2 hours after taking the doxycycline. She is to elevate her foot as much just possible. 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 I also advised her to follow-up with the wound care center in [place] at [facility] with a follow-up to a oil drilling engineer if no improvement over the next 2 or 3 days. Patient is agreeable to this plan of action. - Differential Dx/Diagnosis Provider Diagnosis: Cellulitis of foot Discharge - Sign-Out/Discharge Documenting (check all that apply): Patient Departure All imaging exams completed and their final reports reviewed: Yes - Discharge Plan Condition: Fair Disposition: HOME Prescriptions: DOXYcycline CAP(*) [DOXYcycline 100MG CAP(*)] 100 mg PO BID 10 Days #20 cap Patient Education Materials: Cellulitis (DC) Referrals: Jasmina Marcus [Primary Care Provider] - Additional Instructions: Elevate your foot as much as possible, apply warm moist compresses to the area or warm salt water soaks 4 to 6 times a day for 20 minutes each time. You might want to consider following up with the wound care clinic in [place] at [facility]. Recheck with your primary care provider in approximately 3-4 days if no improvement and go to the ER if you have red streaks up her leg, fever or chills, unable keep medication down. Be sure and take no antacids or dairy products or multivitamins 2 hours before you take doxycycline and 2 hours after you take the doxycycline however it is important that you take doxycycline with food. - Billing Disposition and Condition Condition: FAIR Disposition: Home - Attestation Statements Provider Attestation: I was available for consult. This patient was seen by the MELISSA. The patient was not presented to , seen by or examined by me -Jana Rizzo MD
[2018-10-24 11:51] VITALS: BP 138/75
--- NOTE | 2018-10-25 16:57 | UC ---
- Progress Note Progress Note: Spoke with Dr. Rizzo. He is requesting pt see Ortho [facility]ER[facility] for ?osteo of left foot. Will make referral and have nursing inform pt. Course/Dx - Diagnoses Provider Diagnoses: Cellulitis of foot Discharge - Sign-Out/Discharge Documenting (check all that apply): Post-Discharge Follow Up All imaging exams completed and their final reports reviewed: Yes - Discharge Plan Condition: Fair Disposition: HOME Prescriptions: DOXYcycline CAP(*) [DOXYcycline 100MG CAP(*)] 100 mg PO BID 10 Days #20 cap Patient Education Materials: Cellulitis (DC) Referrals: Jasmina Marcus [Primary Care Provider] - Riley Marcelo MD [Medical Doctor] - As Soon As Possible Additional Instructions: Elevate your foot as much as possible, apply warm moist compresses to the area or warm salt water soaks 4 to 6 times a day for 20 minutes each time. You might want to consider following up with the wound care clinic in [place] at [facility]. Recheck with your primary care provider in approximately 3-4 days if no improvement and go to the ER if you have red streaks up her leg, fever or chills, unable keep medication down. Be sure and take no antacids or dairy products or multivitamins 2 hours before you take doxycycline and 2 hours after you take the doxycycline however it is important that you take doxycycline with food. - Billing Disposition and Condition Condition: FAIR Disposition: Home
== END 2018-10-24 13:00 | disposition home or self-care (01) ==
LOC: UCEAST 11:40
DX: L03.116 Cellulitis of left lower limb (principal)
CPT/HCPCS: 99212; G0463

== ENCOUNTER 2022-09-09 05:46 | Observation (INO) ==
[2022-09-09] MEDS ORDERED: Buffered Lidocaine 1% SYRIN 1 ml INTRADERM ONE (06:00)
[2022-09-09] MEDS ORDERED: Lactated Ringers 1000 ml BAG 1,000 ML IV SCH (06:00)
[2022-09-09] MEDS ORDERED: ceFAZolin 2 GM PREMIX 2 GM/50 ML BAG ONE (06:01)
[2022-09-09] MEDS ORDERED: Tranexamic Acid 1 GM/100ML BAG 2,000 MG/200 ML BAG IV ONE (06:01)
[2022-09-09] MEDS ORDERED: BUPIVACAINE **LIPOSOME/PF 13.3 MG/ML (266MG/ 20ML) VIAL (RESTRICTED) INFIL ONE (07:00)
[2022-09-09] MEDS ORDERED: Bupivacaine 0.25% SDV 30 ML ONE (07:11)
[2022-09-09] MEDS ORDERED: Phenylephrine IV 10 MG/ML 1 ml VIAL ONE (07:15)
[2022-09-09] MEDS ORDERED: Lidocaine 2% PF 5 ML VIAL ONE (07:15)
[2022-09-09] MEDS ORDERED: Midazolam 2 mg/2 ml VIAL 1 mg/ml 2 ml VIAL (2 mg) ONE (07:34)
[2022-09-09] MEDS ORDERED: Glycopyrrolate IV 0.2 MG/ML 1 ML VIAL ONE (08:16)
[2022-09-09] MEDS ORDERED: Propofol 10 MG/ML 20 ML BTL ONE (08:28)
[2022-09-09] MEDS ORDERED: Dexamethasone IV 4 MG/ML VIAL 1 ml VIAL ONE (08:37)
[2022-09-09] MEDS ORDERED: Ondansetron 4 mg VIAL 2 MG/ML 2 ml VIAL ONE (08:37)
[2022-09-09] MEDS ORDERED: Magnesium Hydroxide LIQ 30 ML UDC PO PRN (10:40)
[2022-09-09] MEDS ORDERED: Ondansetron 4 mg VIAL 2 MG/ML 2 ml VIAL IV PRN (10:40)
[2022-09-09] MEDS ORDERED: Ondansetron ODT 4 mg TAB 4 MG TAB PO PRN (10:40)
[2022-09-09] MEDS ORDERED: Lactulose 30 ml UDC PO PRN (10:40)
[2022-09-09] MEDS ORDERED: ceFAZolin 1 GM ADVAN 1 GM in NS 0.9% 50 ML 50 ML IVPB SCH (11:00)
[2022-09-09] MEDS: Lactated Ringers 1000 ml BAG 1,000 ML IV SCH ×2 (12:00→21:52)
[2022-09-09] MEDS: ceFAZolin 1 GM ADVAN 1 GM in NS 0.9% 50 ML 50 ML IVPB SCH ×2 (15:25→23:56)
[2022-09-09] MEDS ORDERED: CMCS:Meloxicam 7.5 mg TAB (NF) PO SCH (21:00)
[2022-09-09] MEDS: Magnesium Hydroxide LIQ 30 ML UDC PO SCH (21:04)
[2022-09-10] MEDS: Morphine 2 MG/ML SYRINGE IV PRN ×2 (00:02→05:53)
[2022-09-10 06:15] LABS: Hematocrit 34 % (35-47); Hemoglobin 11.4 g/dL (12.0-16.0); Mean Platelet Volume 7.6 fL (7.4-10.4); Platelet Count 285 10^3/uL (150-450)
[2022-09-10 06:37] LABS: Calcium 8.7 mg/dL (8.6-10.3); Creatinine, Serum 1.09 mg/dL (0.51-0.95); Potassium 4.6 mmol/L (3.5-5.0); eGFR CKD-EPI 57.1 (>60)
[2022-09-10] MEDS: Magnesium Hydroxide LIQ 30 ML UDC PO SCH (08:23)
[2022-09-10] MEDS: ceFAZolin 1 GM ADVAN 1 GM in NS 0.9% 50 ML 50 ML IVPB SCH (08:28)
[2022-09-10] MEDS ORDERED: Vitamin THERAPEUTIC TAB PO SCH (09:00)
[2022-09-10 11:44] VITALS: BP 110/61
== END 2022-09-10 13:55 | disposition home or self-care (01) ==
LOC: SSU 05:46 → OR 05:46
PROVIDERS: ADMIT Orthopaedic Surgery Sports Medicine; ATTEND Orthopaedic Surgery Sports Medicine